=== PATIENT | male | born 1995 | race Caucasian/White ===

== ENCOUNTER → 2020-06-29 08:48 | Outpatient (CLI) | payer OTHER, SELFPAY ==
[2020-06-29 10:49] LABS: HIV 1 & 2 Ab/Ag 4th Gen Combo NEGATIVE (NEGATIVE)
[2020-06-30 02:50] LABS: HBsAg Screen Negative (Negative); Hepatitis A Antibody IgM Negative (Negative); Hepatitis B Core Antibody IgM Negative (Negative); Hepatitis C Antibody <0.1 s/co ratio (0.0-0.9)
[2020-06-30 10:07] LABS: RPR Screen Non Reactive (Non Reactive)
== END ==
PROVIDERS: Referring Provider Physician Assistant; Visit Provider Physician Assistant
DX: L30.9 Dermatitis, unspecified (principal)
CPT/HCPCS: 36415; 80074; 86592; 87389

== ENCOUNTER → 2020-10-17 14:54 | Outpatient (CLI) | payer OTHER, SELFPAY ==
--- NOTE | 2020-10-17 14:57 | DI.RAD.S_ITS ---
PROCEDURE: XR ANKLE LT MIN 3V INDICATIONS: swelling TECHNIQUE: 3 views of the ankle were acquired. COMPARISON: None. FINDINGS: Bones: There is a distal fibular fracture seen below the level of the syndesmosis. The syndesmosis does not appear widened. There is widening of the ankle mortise. The talar dome demonstrates no soren abnormality. Soft tissues: Generalized soft tissue swelling is seen, which is most prominent laterally. IMPRESSION: Distal fibular fracture with widening of the ankle mortise and soft tissue swelling. Dictated by: Bhupinder Stubbs M.D. on 10/17/2020 at 14:08 Approved by: Bhupinder Stubbs M.D. on 10/17/2020 at 14:09
== END ==
PROVIDERS: Referring Provider Student in an Organized Health Care Education/Training Program; Visit Provider Student in an Organized Health Care Education/Training Program
DX: S82.832A Other fracture of upper and lower end of left fibula, initial encounter for closed fracture (principal); M79.89 Other specified soft tissue disorders; X58.XXXA Exposure to other specified factors, initial encounter
CPT/HCPCS: 73610